=== PATIENT | female | born 1985 | race Caucasian/White ===

== ENCOUNTER 2022-01-10 14:08 | Emergency (ER) | payer OTHER, SELFPAY ==
[2022-01-10 14:15] VITALS: BP 144/81; PULSE 76; RESP 20; TEMP 36.7; O2SAT 100
--- NOTE | 2022-01-10 14:15 | ED.NECK ---
HPI - Neck Pain/Injury General Chief Complaint: Back Pain/Injury Stated Complaint: Upper Back/ Neck Pain Time Seen by Provider: 01/10/22 14:15 History of Present Illness HPI Narrative: Patient is a 36-year-old female who presents the urgent care with complaints of posterior neck pain radiating to the shoulders. Patient states that she works as a [employer] and believes it is due to patient's hanging on her neck when lifting and ambulating. Patient states that she is currently breast-feeding her 3-month-old child. States that she has tried [id number] pain medication without much relief. It was also noted that patient was seen in the emergency room just recently in December and given Flexeril. No other acute complaints. No acute distress noted. Patient aware of the plan of care. Some parts of this dictation were generated by voice recognition software and may contain typographical and/or grammatical inaccuracies. Related Data Home Medications Medication Instructions Recorded Confirmed vit no.133-ferrous 1 tablet PO DAILY 01/10/22 01/10/22 fumarate 28 mg-folic acid 800 mcg tablet () Allergies Allergy/AdvReac Type Severity Reaction Status Date / Time No Known Allergies Allergy Verified 01/10/22 14:27 Review of Systems Review of Systems: CONSTITUTIONAL: Denies fever, chills, or sweats. EYES: Denies visual changes, redness, or discharge. ENT: Denies rhinorrhea, congestion, sore throat, or otalgia. CARDIOVASCULAR: Denies chest pain, palpitations, or edema. RESPIRATORY: Denies cough or dyspnea. GASTROINTESTINAL: Denies abdominal pain, nausea, vomiting, or diarrhea. GENITOURINARY: Denies dysuria or hematuria. SKIN: Denies rash or itching. MUSCULOSKELETAL: Reports of posterior neck pain rating to bilateral shoulders NEUROLOGIC: Denies headache, numbness, or weakness. All other systems reviewed are negative, except as documented in HPI. PMFSH Comments At the time of my signature, I reviewed and agree with the nursing past medical, surgical, social, and family history. There is no relevant family history pertinent to the patient complaint. Exam Narrative: GENERAL: This is a well-nourished, well-developed patient, in no apparent distress. HEAD: normocephalic, atraumatic. EYES: PERRL. Sclera clear/white. Vision is grossly intact. EARS: External ears normal NOSE: External nose normal with no obvious nasal discharge, nares without redness, no rhinorrhea. THROAT: Mucous membranes moist NECK: Left and right flexion within normal limits. Moderate exacerbated pain with chin tuck and head tilt. Moderate C6/C7 tenderness without crepitus or step-off. CARDIOVASCULAR: Regular rate and rhythm without murmurs, gallops, or rubs. RESPIRATORY: Clear to auscultation. Breath sounds equal bilaterally. No wheezes, rales, or rhonchi. SKIN: warm, intact with no suspicious lesions or rash, good texture and turgor. NEURO: awake, alert, and oriented to person, place and time. There were no obvious focal neurologic abnormalities. EXTREMITIES: No clubbing, cyanosis, or edema. Course Course Level of Care: Express Care Visit Vital Signs Vital signs: Vital Signs Temperature 98.1 F 01/10/22 14:15 Pulse Rate 76 01/10/22 14:15 Respiratory Rate 20 01/10/22 14:15 Blood Pressure 144/81 H 01/10/22 14:15 Pulse Oximetry 100 01/10/22 14:15 Oxygen Delivery Room Air 01/10/22 14:15 Temperature 98.1 F 01/10/22 14:15 Pulse Rate 76 01/10/22 14:15 Respiratory Rate 20 01/10/22 14:15 Blood Pressure 144/81 H 01/10/22 14:15 Pulse Oximetry 100 01/10/22 14:15 Oxygen Delivery Room Air 01/10/22 14:15 Reviewed-patient is informed that they may have pre-hypertension or hypertension based on a blood pressure reading in the department. I recommend the patient call the primary care provider listed on their discharge instructions or a physician of their choice this week to arrange follow-up for further evaluatio
== END 2022-01-10 14:49 | disposition home or self-care (01) ==
PROVIDERS: Emergency Provider Nurse Practitioner Family; PCP Family Medicine
DX: S16.1XXA Strain of muscle, fascia and tendon at neck level, initial encounter (principal); X58.XXXA Exposure to other specified factors, initial encounter; Y99.0 Civilian activity done for income or pay
CPT/HCPCS: 99213; G0463

== ENCOUNTER 2022-07-11 09:38 | Emergency (ER) | payer OTHER, SELFPAY ==
[2022-07-11 09:47] VITALS: BP 125/81; PULSE 82; RESP 16; TEMP 36.5; O2SAT 99
--- NOTE | 2022-07-11 10:04 | ED.EAR ---
HPI - Ear Problem General Chief complaint: Ear Stated complaint: Left Ear Pain Time Seen by Provider: 07/11/22 10:04 Source: patient and RN notes reviewed Mode of arrival: ambulatory Limitations: no limitations History of Present Illness HPI Narrative: 36-year-old female presents concern for left ear pain. She reports that ?it feels like there is drainage from the ear?. She denies hearing changes, fever, aches, chills. Denies cold symptoms, stuffy nose, runny nose, headache. Denies history of problems with her ears. MD Complaint: ear pain Related Data Allergies Allergy/AdvReac Type Severity Reaction Status Date / Time No Known Allergies Allergy Verified 07/11/22 09:51 Review of Systems Review of Systems: CONSTITUTIONAL: Denies malaise, chills, sweats, or fever. EYES: Denies visual changes, redness, or discharge. ENT: Denies rhinorrhea, congestion, sinus pain, and sore throat. Reports left ear pain CARDIOVASCULAR: Denies chest pain, palpitations, or edema. RESPIRATORY: Denies cough. Denies dyspnea. GASTROINTESTINAL: Denies abdominal pain, nausea, vomiting, diarrhea SKIN: Denies rash or itching. MUSCULOSKELETAL: Denies myalgia. NEUROLOGIC: Denies headache. All systems reviewed & are unremarkable except as noted in HPI and below PMFSH Comments At time of signature, agree with nursing past medical, surgical, social and family history. There is no relevant family history pertinent to the presenting complaint Exam Narrative: GENERAL: Well-appearing, well-nourished, and in no acute distress. HEAD: Normocephalic EYES: PERRLA, conjunctivae clear ENT: Nares clear, turbinates edematous, clear discharge. Mucous membranes moist. TM pearly barton with sharp light reflex bilaterally; left tragal tenderness with EAC erythema and edema. Oropharynx not erythematous without lesions. Tonsils not enlarged and without exudate, no drooling, no hoarseness, no trismus, uvula midline. NECK: Supple. No lymphadenopathy CHEST: No respiratory distress, speaks in full sentences. HEART: Regular rate and rhythm. No murmur heard. SKIN: Warm, dry, no rash. NEURO: Alert and oriented x3. PSYCH: Normal mood and affect Course Course Emergency Course: Patient is aware of diagnosis, understands and agrees to treatment plan. Anticipatory guidance given. Patient agrees to follow-up as directed and is aware of reasons to seek care at the emergency department. Portions of this record may have been created with voice recognition software Level of Care: Express Care Visit Vital Signs Vital signs: Vital Signs Temperature 97.7 F 07/11/22 09:47 Pulse Rate 82 07/11/22 09:47 Respiratory Rate 16 07/11/22 09:47 Blood Pressure 125/81 07/11/22 09:47 Pulse Oximetry 99 07/11/22 09:47 Oxygen Delivery Room Air 07/11/22 09:47 Temperature 97.7 F 07/11/22 09:47 Pulse Rate 82 07/11/22 09:47 Respiratory Rate 16 07/11/22 09:47 Blood Pressure 125/81 07/11/22 09:47 Pulse Oximetry 99 07/11/22 09:47 Oxygen Delivery Room Air 07/11/22 09:47 Reviewed. Medical Decision Making MDM Narrative Medical decision making narrative: Differential diagnosis considered: Cook virus, strep pharyngitis, allergic rhinitis, upper respiratory tract infection, sinusitis, rhinosinusitis, nasopharyngitis. viral pharyngitis, otitis media, otitis externa, otitis effusion, cerumen impaction, foreign body. Exam findings show no acute concerns or changes; patient is non-toxic appearing and is in no distress. Patient is appropriate for outpatient treatment and follow-up. Vital Signs Vital Signs: Vital Signs Temperature 97.7 F 07/11/22 09:47 Pulse Rate 82 07/11/22 09:47 Respiratory Rate 16 07/11/22 09:47 Blood Pressure 125/81 07/11/22 09:47 Pulse Oximetry 99 07/11/22 09:47 Oxygen Delivery Room Air 07/11/22 09:47 Temperature 97.7 F 07/11/22 09:47 Pulse Rate 82 07/11/22 09:47 Respiratory Rate 16 07/11/22 09:47 Blood Pre
== END 2022-07-11 10:10 | disposition home or self-care (01) ==
PROVIDERS: Emergency Provider Nurse Practitioner; PCP Family Medicine
DX: H60.92 Unspecified otitis externa, left ear (principal)
CPT/HCPCS: 99213; G0463

== ENCOUNTER 2022-10-16 18:13 | Emergency (ER) | payer OTHER, SELFPAY ==
[2022-10-16 18:18] VITALS: BP 123/71; PULSE 81; RESP 14; TEMP 36.6; O2SAT 100
--- NOTE | 2022-10-16 18:35 | ED.URI ---
HPI - URI/Sore Throat General Chief Complaint: Upper Respiratory Infection Stated Complaint: Sore Throat History of Present Illness HPI Narrative: 36-year-old female presents to the [facility] today complaining of a sore throat x2 days. Patient denies any cough, fever, chills, nausea, vomiting, diarrhea, body aches. Patient states the sore throat causes difficulty swallowing but is relieved with some Motrin. Patient states she is still able to eat and drink but has pain with swallowing. Patient denies any difficulty breathing or or drooling. Patient denies any sick contacts. Related Data Home Medications Medication Instructions Recorded Confirmed topiramate 50 mg tablet 50 mg PO DIRECTED 10/16/22 10/16/22 Allergies Allergy/AdvReac Type Severity Reaction Status Date / Time No Known Allergies Allergy Verified 10/16/22 18:22 Review of Systems Review of Systems: CONSTITUTIONAL: Denies fever, chills, or sweats. EYES: Denies visual changes, redness, or discharge. ENT: Denies otalgia. Sore throat x2 days CARDIOVASCULAR: Denies chest pain, palpitations, or edema. RESPIRATORY: Denies cough or dyspnea. GASTROINTESTINAL: Denies abdominal pain, nausea, vomiting, or diarrhea. GENITOURINARY: Denies dysuria or hematuria. SKIN: Denies rash or itching. MUSCULOSKELETAL: Denies back pain, joint pain, or myalgia. NEUROLOGIC: Denies headache, numbness, or weakness. Pertinent positives per HPI. PMFSH Comments At the time of my signature, I reviewed and agree with the nursing past medical, surgical, social, and family history. There is no relevant family history pertinent to the patient complaint. Exam Narrative: GENERAL: This is a well-nourished, well-developed patient, in no apparent distress. HEAD: normocephalic, atraumatic. EYES: Sclera clear/white. Vision is grossly intact. EARS: External ears normal, auditory canals clear and without drainage, TMs normal without perforation. Hearing grossly intact. NOSE: External nose normal with no obvious nasal discharge, nares without redness, no rhinorrhea. THROAT: Mucous membranes moist, mild erythema present to posterior pharynx. Tonsils 2+, uvula midline. NECK: Neck supple, non-tender without lymphadenopathy, masses or thyromegaly. CARDIOVASCULAR: Regular rate and rhythm without murmurs, gallops, or rubs. RESPIRATORY: Clear to auscultation. Breath sounds equal bilaterally. No wheezes, rales, or rhonchi. SKIN: warm, intact with no suspicious lesions or rash, good texture and turgor. NEURO: awake, alert, and oriented to person, place and time. There were no obvious focal neurologic abnormalities. EXTREMITIES: No clubbing, cyanosis, or edema. No joint tenderness, effusion, or edema noted. BACK: Nontender without deformity or crepitance. No flank tenderness. Course Course Level of Care: Express Care Visit Vital Signs Vital signs: Vital Signs Temperature 97.8 F 10/16/22 18:18 Pulse Rate 81 10/16/22 18:18 Respiratory Rate 14 10/16/22 18:18 Blood Pressure 123/71 10/16/22 18:18 Pulse Oximetry 100 10/16/22 18:18 Oxygen Delivery Room Air 10/16/22 18:18 Temperature 97.8 F 10/16/22 18:18 Pulse Rate 81 10/16/22 18:18 Respiratory Rate 14 10/16/22 18:18 Blood Pressure 123/71 10/16/22 18:18 Pulse Oximetry 100 10/16/22 18:18 Oxygen Delivery Room Air 10/16/22 18:18 Reviewed MDM - URI/Sore Throat MDM Narrative Medical decision making narrative: Rapid strep is negative in the office; however we will send to the lab for confirmation; there is a small percentage chance that it can come back positive; if it is, we will call you in 2-3days; and your prescription will be call in to your pharmacy. However, there is NO indication for antibiotic at this time. -Increase your fluids and Vitamin C. -Oral rinses such as: Salt water gargles and/or may use topical anesthetic (eg. Chloraseptic spray) or lozenges to relieve dryness or throat pain. -
== END 2022-10-16 18:44 | disposition home or self-care (01) ==
PROVIDERS: Emergency Provider Nurse Practitioner Family
DX: J02.9 Acute pharyngitis, unspecified (principal)
CPT/HCPCS: 87081; 87880; 99213; G0463

== ENCOUNTER 2023-04-08 10:10 | Emergency (ER) | payer OTHER, SELFPAY ==
[2023-04-08 10:26] VITALS: BP 115/68; PULSE 84; RESP 20; TEMP 36.8; O2SAT 100
--- NOTE | 2023-04-08 10:33 | ED.GENADULT ---
HPI - General Adult General Chief complaint: Extremity Problem,Nontraumatic Stated complaint: Right hand middle finger Source: patient Mode of arrival: ambulatory Limitations: no limitations History of Present Illness HPI narrative: 37-year-old female presented for complaint of skin changes to the end of the right middle finger since September. Reports rough barton texture extending from the nailbed. Not applying anything to the finger. Denies bleeding or swelling to the site. Reports similar smaller lesion to the left ring finger. Patient reports 11 weeks gestation. Related Data Home Medications Medication Instructions Recorded Confirmed topiramate 50 mg tablet 50 mg PO DIRECTED 10/16/22 04/08/23 vits no.126-ferrous fum 1 tablet PO DAILY 04/08/23 04/08/23 28 mg iron-folic acid 800 mcg tablet (Classic ) Allergies Allergy/AdvReac Type Severity Reaction Status Date / Time No Known Allergies Allergy Verified 04/08/23 10:45 Review of Systems Review of Systems: CONSTITUTIONAL: Denies body aches, fever, chills, or sweats. EYES: Denies visual changes, redness, or discharge. ENT: Denies rhinorrhea, congestion CARDIOVASCULAR: Denies chest pain, palpitations, or edema. RESPIRATORY: Denies cough or dyspnea. GASTROINTESTINAL: Denies abdominal pain, nausea, vomiting, or diarrhea. SKIN: reports skin changes to right middle finger MUSCULOSKELETAL: Denies back pain, joint pain, or myalgia. NEUROLOGIC: Denies headache, numbness, tingling, or weakness. [facility] Past Medical History Medical History (Updated 04/08/23 @ 10:59 by Starr Montes, ABDULAZIZ) No pertinent past medical history Comments At time of signature, I have reviewed and agree with nursing past medical, surgical, social and family history unless otherwise noted. Please see nursing chart for further information. There is no relevant family history pertinent to the presenting complaint Exam Narrative: GENERAL: Well-appearing HEAD: Normocephalic, atraumatic. EYES: conjunctivae clear, and EOMI. ENT: Mucous membranes moist. Oropharynx without edema, erythema or lesions. NECK: Supple. No lymphadenopathy CHEST: Clear to auscultation. HEART: Regular rate and rhythm. SKIN: Warm, dry. distal and of the right middle nail bed with fungal appearance, raised irregular area approx 3mm diameter extending under the nail consistent onychomycosis, approx 2mm fissure; no drainage or surrounding erythema or swelling NEURO: Alert and oriented x3. Course Course Emergency Course: Patient is aware of diagnosis, understands and agrees to treatment plan. Anticipatory guidance given. Patient agrees to follow-up as directed and is aware of reasons to seek care at the emergency department. Portions of this record may have been created with voice recognition software Level of Care: Express Care Visit Vital Signs Vital signs: Vital Signs Temperature 98.3 F 04/08/23 10:26 Pulse Rate 84 04/08/23 10:26 Respiratory Rate 20 04/08/23 10:26 Blood Pressure 115/68 04/08/23 10:26 Pulse Oximetry 100 04/08/23 10:26 Oxygen Delivery Room Air 04/08/23 10:26 Temperature 98.3 F 04/08/23 10:26 Pulse Rate 84 04/08/23 10:26 Respiratory Rate 20 04/08/23 10:26 Blood Pressure 115/68 04/08/23 10:26 Pulse Oximetry 100 04/08/23 10:26 Oxygen Delivery Room Air 04/08/23 10:26 Reviewed Medical Decision Making MDM Narrative Medical decision making narrative: Discussed physical exam findings consistent with onychomycosis to the right middle fingernail. Patient is currently . Advised soaking the finger in follow-up with PCP/derm. Advised supportive measures and signs/symptoms to go to the ER. Pt is appropriate for outpt treatment and f/u. Differential Diagnosis Differential Diagnosis: onychomycosis, cellulitis, fissure, dermatitis, eczema Vital Signs Vital Signs: Vital Signs Temperature 98.3 F 1
== END 2023-04-08 10:48 | disposition home or self-care (01) ==
PROVIDERS: Emergency Provider Nurse Practitioner Family; PCP Family Medicine
DX: O98.811 Other maternal infectious and parasitic diseases complicating pregnancy, first trimester (principal); B35.1 Tinea unguium
CPT/HCPCS: 99213; G0463